=== PATIENT | male | born 1990 ===

== ENCOUNTER 2018-02-08 17:15 | Emergency (ER) | payer OTHER ==
--- NOTE | 2018-02-08 18:04 | UC ---
Lower Extremity/Ankle HPI - HPI Summary HPI Summary: A 27 y/o male presents to [facility] c/o right ankle area pain reaching 2/10 in severity. As per triage, "Pain in R lower leg starting 2 days ago after going on hike. States that pain has progressively been getting worse, especially with ambulation. Denies any pain in foot". According to the patient, he is experiencing pain in the ankle (above)/calf area for the past couple days when he was walking up some steps. He stated that on the first day, it was apparent, but bearable, however, the next day, the pain was similar and came on more quickly. Today, the pain has become to a point where he is starting to limp slightly. The pain is similar to dempsey splits. Additionally, he stated that after he walks he feels a bit of tingling. He noted that he went mountain hiking this weekend that was intense and an impactful terrain. Plus, he was using recently purchased hiking boots. - History of Current Complaint Chief Complaint: UCLowerExtremity Stated Complaint: LEG PAIN Time Seen by Provider: 02/08/18 17:42 Hx Obtained From: Patient Onset/Duration: Sudden Onset, Lasting Days, Still Present, Worse Since Severity Initially: Mild Severity Currently: Mild Pain Intensity: 2 Pain Scale Used: 0-10 Numeric Aggravating Factor(s): Ambulation Alleviating Factor(s): Nothing Able to Bear Weight: Yes - Allergies/Home Medications Allergies/Adverse Reactions: Allergies Allergy/AdvReac Type Severity Reaction Status Date / Time cat dander Allergy Itching Verified 02/08/18 17:32 mold Allergy Itching Verified 02/08/18 17:32 DUST Allergy Itching Uncoded 02/08/18 17:32 MITE Allergy Itching Uncoded 02/08/18 17:32 SEASONAL Allergy Itching Uncoded 02/08/18 17:32 Home Medications: Home Medications Escitalopram Oxalate [Lexapro 10 mg] 10 mg PO DAILY 02/08/18 [History Confirmed 02/08/18] Methylphenidate HCl [Concerta] 36 mg PO DAILY 02/08/18 [History Confirmed ] Methylphenidate HCl [Ritalin] 10 mg PO QPM 02/08/18 [History Confirmed 02/08/18] PMH/Surg Hx/FS Hx/Imm Hx Endocrine History: Diabetes - NEGATIVE Cardiovascular History: Hypertension - NEGATIVE Respiratory History: Asthma - POSITIVE - Surgical History Surgical History: Yes Surgery Procedure, Year, and Place: Tonsillectomy and adenoidectomy. - Family History Known Family History: Positive: Hypertension, Diabetes - Social History Alcohol Use: Weekly Substance Use Type: None Smoking Status (MU): Never Smoked Tobacco Review of Systems Constitutional: Negative Skin: Negative Eyes: Negative ENT: Negative Respiratory: Negative Cardiovascular: Negative Gastrointestinal: Negative Genitourinary: Negative Motor: Negative Neurovascular: Negative Musculoskeletal: Other: - POSITIVE: Right ankle/calf area pain Neurological: Negative Psychological: Negative Is Patient Immunocompromised?: No All Other Systems Reviewed And Are Negative: Yes Physical Exam - Summary Physical Exam Summary: General: well-appearing, no pain distress Skin: warm, color reflects adequate perfusion, dry Head: normal Eyes: EOMI, DANDY ENT: normal Neck: supple, nontender Respiratory: CTA, breath sounds present Cardiovascular: RRR Abdomen: soft, nontender Bowel: present Musculoskeletal: strength/ROM intact, right ankle tender to palpation in medial malleolus and lateral distal tibia, no erythema. Neurological: sensory/motor intact, A&O x3 Psychological: affect/mood appropriate Triage Information Reviewed: Yes Vital Signs: Initial Vital Signs Temp 99.4 F 02/08/18 17:33 Pulse 86 02/08/18 17:33 Resp 18 02/08/18 17:33 BP 137/87 02/08/18 17:33 Pulse Ox 96 02/08/18 17:33 Vital Signs Reviewed: Yes Diagnostics - Radiology Ankle XR Radiology Interpretation Completed By: Radiologist - POSSIBLE SMALL OSTEOCHONDRAL LESION PRESENT ALONG THE MEDIAL ARTICULAR SURFACE OF THE TALUS. THIS CAN BE FURTHER EVALUATED WITH AN MRI OF THE ANKLE CLINICALLY NEEDED. ED physician reviewed this radiology report. Re-Evaluation - Re-Evaluation First Eval Re-Evaluation Time: 18:32 Comment: Discussed results and plan with patient. Second Eval Re-Evaluation Time: 18:45 Comment: Patient asked questions about his injury to MD. Patient has a friend that has crutches. Patient would like information on how to use crutches. Lower Extremity Course/Dx - Course Course Of Treatment: Medications reviewed. Allergies noted. DISCUSSED X-RAY RESULTS WITH THE PATIENT TO INCLUDE THE POSSIBILITY OF AN OSTEOCHONDRAL LESION. I ENCOURAGED HIM TO MINIMIZE WEIGHT BEARING AND TO F/U WITH [facility]. RECHECK SOONER IF WORSE. - Differential Dx/Diagnosis Provider Diagnoses: RIGHT ANKLE SPRAIN Discharge - Sign-Out/Discharge Documenting (check all that apply): Patient Departure - DISCHARGE All imaging exams completed and their final reports reviewed: Yes - Ankle XR - Discharge Plan Condition: Stable Disposition: HOME Patient Education Materials: Ankle Sprain (ED) Referrals: [facility] [Provider Group] Additional Instructions: FOLLOW UP WITH [facility] NEXT WEEK SCHEDULED. MINIMIZE WEIGHT BEARING UNTIL RE EVALUATION AT [facility]. THERE IS A QUESTION OF AN OSTEOCHONDRAL LESION (CARTILAGE INJURY IN YOUR ANKLE) ON YOUR ANKLE X-RAY. GET THIS EVALUATED BY YOUR DOCTOR AT [facility] TO DETERMINE FURTHER TREATMENT AND IF AN MRI IS NEEDED. GET RECHECKED FOR ANY WORSENING OF YOUR CONDITION OR QUESTIONS OR CONCERNS. - Billing Disposition and Condition Condition: STABLE Disposition: Home - Attestation Statements Document Initiated by Kaela: Yes Documenting Scribe: Jose Antonio Oneill Provider For Whom Asifibe is Documenting (Include Credential): Selvin Gonzalez MD Scribe Attestation: Jose Antonio Taylor scribed for Selvin Gonzalez MD on 02/08/18 at 1955. Scribe Documentation Reviewed: Yes Provider Attestation: The documentation as recorded by the Jose Antonio chavez accurately reflects the service I personally performed and the decisions made by , Selvin Gonzalez MD
--- NOTE | 2018-02-08 18:20 | RAD ---
INDICATION: Medial ankle pain. TECHNIQUE: 3 views of the right ankle were obtained. FINDINGS: The bones are in normal alignment. There is a small area of lucency present in the subchondral bone along the medial articular surface of the talus possibly representing a osteochondral lesion. No other focal osseous abnormalities are seen. Joint spaces appear maintained. IMPRESSION: POSSIBLE SMALL OSTEOCHONDRAL LESION PRESENT ALONG THE MEDIAL ARTICULAR SURFACE OF THE TALUS. THIS CAN BE FURTHER EVALUATED WITH AN MRI OF THE ANKLE CLINICALLY NEEDED.
== END 2018-02-08 19:04 | disposition home or self-care (01) ==
LOC: UCEAST 17:15
DX: S93.401A Sprain of unspecified ligament of right ankle, initial encounter (principal); J45.909 Unspecified asthma, uncomplicated; Y93.31 Activity, mountain climbing, rock climbing and wall climbing; Z91.09 Other allergy status, other than to drugs and biological substances; Y92.828 Other wilderness area as the place of occurrence of the external cause
CPT/HCPCS: 99202; G0463

== ENCOUNTER 2018-12-12 08:18 | Emergency (ER) | payer OTHER ==
[2018-12-12] MEDS ORDERED: predniSONE TAB* 20 MG PO ONE (08:31)
[2018-12-12] MEDS ORDERED: Albuterol/Ipratropium NEB.SOL* Albuterol 2.5 MG/Ipratropium 0.5 MG 3 ML INH ONE (08:31)
--- NOTE | 2018-12-12 08:35 | ED ---
Asthma - HPI Summary HPI Summary: 28 year old M presenting to [facility] with a chief complaint of shortness of breath since yesterday evening. The patient rates the pain 0/10 in severity. Symptoms aggravated by nothing. Symptoms alleviated by nothing. Pt with a h/o asthma - pt does not have an inhaler - been out 6 months. Patient reports that he wasn't able to sleep last night. He reports cough, non productive. Patient denies fever and chills. Patient has hx asthma which he states is usually exercise induced. Yesterday afternoon, patient ran to catch a bus. He is prescribed albuterol and Dulera. He didn't treat his shortness of breath with any medications last night. He is supposed to take his asthma medications but has run out and not followed up for refills. Pt states his asthma attacks are rare. He last had prednisone 2 years ago. Patient has never been hospitalized for his asthma. Patient doesn't have an established primary care provider in [place]. He usually goes to [facility] and an director engineering specialist but hasn't been seen by them for a while. 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 Patients medication reviewed this visit. - History of Current Complaint Chief Complaint: EDAsthma Stated Complaint: SHORT OF BREATH Time Seen by Provider: 12/12/18 08:23 Hx Obtained From: Patient Onset/Duration: Lasting Hours - yesterday evening, Still Present Timing: Constant Current Severity: None Pain Intensity: 0 Pain Scale Used: 0-10 Numeric Aggravating Symptoms: Nothing Alleviating Symptoms: Nothing Associated Signs and Symptoms: Positive: Other - wasn't able to sleep last night , cough; NEGATIVE: fever and chills - Allergy/Home Medications Allergies/Adverse Reactions: Allergies Allergy/AdvReac Type Severity Reaction Status Date / Time cat dander Allergy Itching Verified 02/08/18 17:32 mold Allergy Itching Verified 02/08/18 17:32 DUST Allergy Itching Uncoded 02/08/18 17:32 MITE Allergy Itching Uncoded 02/08/18 17:32 SEASONAL Allergy Itching Uncoded 02/08/18 17:32 PMH/Surg Hx/FS Hx/Imm Hx Previously Healthy: Yes Respiratory History: Reports: Hx Asthma Sensory History: Reports: Hx Contacts or Glasses Opthamlomology History: Reports: Hx Contacts or Glasses Psychiatric History: Reports: Hx Attention Deficit Hyperactivity Disorder - Surgical History Surgery Procedure, Year, and Place: Tonsillectomy and adenoidectomy. 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 EOM intact and full ENT: Hearing grossly normal TM x 2 clear, mmoist, uvula midline, no exudate, no erythema Neck: Positive: Supple Respiratory: Positive: No respiratory distress, No accessory muscle use scattered inspiratory and expiratory wheeze, speaking full sentences Cardiovascular: RRR nl s1, s2 no m/r CBT <2 sec abd soft + BS nt/nd no guarding, no distension Musculoskeletal Exam: WADE x 4 without difficulty Strength Intact, ROM Intact Neurological: Positive: Alert, + sensation throughout Psychological: Positive: Normal Response To examiner Skin: Positive: no rash, no ecchymosis Triage Information Reviewed: Yes Vital Signs On Initial Exam: Initial Vitals Temp Pulse Resp BP Pulse Ox 97.9 F 95 19 138/104 94 12/12/18 08:19 12/12/18 08:19 12/12/18 08:19 12/12/18 08:19 12/12/18 08:19 Vital Signs Reviewed: Yes Diagnostics - Vital Signs Vital Signs Temp Pulse Resp BP Pulse Ox 12/12/18 08:19 97.9 F 95 19 138/104 94 - Laboratory Lab Statement: Any lab studies that have been ordered have been reviewed, and results considered in the medical decision making process. Re-Evaluation - Re-Evaluation First Eval Re-Evaluation Time: 09:45 Change: Improved Comment: patient feels better after neb - wheezing is resolved. he will be discharged home. Rx prednisone, albuterol MDI with aerochamber. f/u with [employer] [facility] physician referral center. agreement and comfort with plan. return precautions. declined work note. BP improved and normal Asthma Course/Dx - Course Course Of Treatment: Patient with a history of asthma. Patient is medicine for about 6 months. Patient states yesterday he developed an asthma attack after running to catch a bus. Patient states he was up most sunlight wheezing and coughing. Patient is out of his rescue inhaler. Patient states currently he still feels a little short of breath. Mild cough. Nonproductive. No fevers or chills. Patient treated at [facility] but does not have a clear primary care provider. On exam vital signs showed an elevated BP at triage - improved in room. Patient speaking easy comfortable sentences. Patient does however have inspiratory. Wheezes. We'll give patient a DuoNeb sternum prednisone. Reassess. Anticipate will be discharged home with follow-up. We'll provide patient with a physician care referral as well as refills for his albuterol. Patient states understanding agreement with plan. We'll reassess after nebs. - Diagnoses Provider Diagnoses: Asthma exacerbation, mild Discharge - Sign-Out/Discharge Documenting (check all that apply): Patient Departure Patient Received Moderate/Deep Sedation with Procedure: No - Discharge Plan Condition: Stable Disposition: HOME Prescriptions: Albuterol HFA INHALER* [Ventolin HFA Inhaler*] 1 - 2 puff INH Q4H PRN #1 mdi PRN Reason: wheeze Inhaler, Assist Devices [Aerochamber Mv] 1 each PO Q4HR #1 spacer predniSONE TAB* [Deltasone TAB*] 50 mg PO DAILY #4 tab Patient Education Materials: Asthma (ED) Referrals: [facility] [Provider Group] [facility] [Outside] Additional Instructions: - stay well hydrated. Drink plenty of non-alcoholic, non-caffinated beverages - take Prednisone daily as prescribed for the next 4 days - Use your inhaler - every 4 hours as needed for wheeze - Contact [facility] or the physician referral center to schedule a primary care follow-up appointment -Return to the emergency department with any questions or concerns - increased shortness of breath, fever, chest pain or any other concerns - Billing Disposition and Condition Condition: STABLE Disposition: Home - Attestation Statements Document Initiated by Scribe: Yes Documenting Scribe: Nava Sofia Provider For Whom Scribe is Documenting (Include Credential): Elsy Lawton MD Scribe Attestation: I, Nava Sofia, scribed for Elsy Lawton MD on 12/12/18 at 1524. Scribe Documentation Reviewed: Yes Provider Attestation: The documentation as recorded by the scribe, Nava Sofia accurately reflects the service I personally performed and the decisions made by me, Elsy Lawton MD Status of Scribe Document: Viewed
[2018-12-12 10:34] VITALS: BP 128/84
== END 2018-12-12 10:35 | disposition home or self-care (01) ==
LOC: ED 08:18
DX: J45.901 Unspecified asthma with (acute) exacerbation (principal)
CPT/HCPCS: 99282; A9270-GY; J7512